=== PATIENT | female | born 1995 | race Caucasian/White ===

== ENCOUNTER 2016-07-28 11:25 | Outpatient (CLI) | payer OTHER ==
[~2016-07-28] VITALS: Ht 157.5 cm; Wt 65.3 kg
[~2016-07-28 11:25] MED LIST: BEN50 PO; CLIN-73 PO; IBUP-1542 PO; NITR-58 PO; PRED50TA PO
[2016-07-28 12:39] VITALS: Ht 157.5 cm; Wt 65.3 kg
[2016-07-28 12:40] VITALS: BP 108/58; PULSE 74; RESP 18
[2016-07-28 13:09] LABS: ADD SCAN DIFF NO
[2016-07-28 13:13] LABS: BASOPHILS % 0.3 % (0.0-2.0); EOSINOPHILS # 0.1 10^3/ul (0.0-0.5); EOSINOPHILS % 0.9 % (0.0-7.0); LYMPHOCYTES # 2.4 10^3/ul (0.8-2.9); LYMPHOCYTES % 20.7 % (15.0-51.0); MEAN CORPUSCULAR HEMOGLOBIN 29.6 pg (29.0-33.0); MEAN CORPUSCULAR HGB CONC 35.5 g/dl (32.0-37.0); MEAN CORPUSCULAR VOLUME 83.6 fl (82.0-101.0); MEAN PLATELET VOLUME 9.9 fl (7.4-10.4); MONOCYTE # 0.7 10^3/ul (0.3-0.9); MONOCYTES % 5.7 % (0.0-11.0); NEUTROPHIL # 8.4 10^3/ul (1.6-7.5); NEUTROPHILS % 71.8 % (39.0-77.0); PLATELET COUNT 320 10^3/UL (140-415); RED BLOOD COUNT 3.71 10^6/ul (4.20-5.40); RED CELL DISTRIBUTION WIDTH 13.5 % (11.5-14.5); WHITE BLOOD COUNT 11.7 10^3/ul (4.8-10.8)
[2016-07-28 13:17] LABS: ADD UMIC YES; URINE BILIRUBIN (Dip) NEGATIVE (NEGATIVE); URINE BLOOD (Dip) NEGATIVE (NEGATIVE); URINE COLOR LT. YELLOW (YELLOW); URINE GLUCOSE (Dip) NEGATIVE (NEGATIVE); URINE KETONES (Dip) 15 (NEGATIVE); URINE LEUKOCYTE ESTERASE (Dip) 2+ (NEGATIVE); URINE NITRITE (Dip) NEGATIVE (NEGATIVE); URINE TOTAL PROTEIN (Dip) NEGATIVE (NEGATIVE); URINE UROBILINOGEN (Dip) 0.2 E.U./dL (0.1-1.0)
[2016-07-28 13:44] LABS: BACTERIA,URINE FEW; SQUAMOUS EPITHELIAL CELL,UR MODERATE; URINE RBCS 0-2 /HPF ([, 0])
--- NOTE | 2016-07-28 14:07 | RADRPT ---
PROCEDURE: Limited obstetric ultrasound CLINICAL INDICATION: Pain , labor TECHNIQUE: Multiple transverse and longitudinal grayscale images of the pelvis were obtained darby sabdominally and transvaginally.. COMPARISON: None FINDINGS: The cervix has a length of 3.3 cm. There is a trace amount of fluid within the cervix. There is a single viable intrauterine gestation. Cardiac activity is present with 152 beats per min [place]. There is a vertex presentation. The placenta is anterior. There is no evidence for an abruption or placenta previa. There is a normal amount of amniotic fluid with a MVP = 4.6 cm. RPTAT: AA IMPRESSION: Cervix length measures 3.3 cm. Trace amount of fluid noted within the cervix. .David Caraballo MD, Date Time Electronically viewed and signed by .David Caraballo MD, MD on 07/28/2016 14:06 .S/
--- NOTE | 2016-07-28 14:15 | TRIAGE ---
OB Triage Datetime Report Generated by CPN: 07/28/2016 14:15 Datetime: 07/28/2016 14:05 Labor Evaluation Frequency: 0 Monitor Mode: External Quality: Mild Datetime: 07/28/2016 13:30 Labor Evaluation Frequency: 0 Monitor Mode: External Quality: Mild Heart Rate Monitor Mode: OFF MONITOR Datetime: 07/28/2016 13:13 Vaginal Exam Membrane Status: Intact Datetime: 07/28/2016 13:00 Labor Evaluation Frequency: 0 Monitor Mode: External Quality: Mild Datetime: 07/28/2016 12:32 Labor Evaluation Frequency: 0 Monitor Mode: External Duration (sec)2399: 0 Resting Tone [place]: Relaxed Comments: OFF MONITOR Datetime: 07/28/2016 12:30 Labor Evaluation Frequency: 0 Monitor Mode: External Quality: Mild Heart Rate Monitor Mode: OFF MONITOR Datetime: 07/28/2016 12:17 Stage of : OB Triage Maternal Assessment Level of Consciousness: Fully Conscious DTR's/Clonus: DTRs 2+; No Clonus Headache: Denies Blurred Vision: No Respiratory Effort: Unlabored Breath Sounds, Left: Clear and Equal Breath Sounds, Right: Clear and Equal Nausea/Vomiting: Denies RUQ Epigastric Pain: Denies Facial Edema: None Labor Evaluation Frequency: 0 Monitor Mode: External Duration (sec)2399: 0 Resting Tone [place]: Relaxed Comments: OFF MONITOR Vaginal Exam Membrane Status: Intact Datetime: 07/28/2016 11:52 Headache: Denies Blurred Vision: No RUQ Epigastric Pain: Denies Facial Edema: None Labor Evaluation Frequency: 0 Monitor Mode: External Duration (sec)2399: 0 Resting Tone [place]: Relaxed Comments: OFF MONITOR Vaginal Exam Membrane Status: Intact Datetime: 07/28/2016 11:43 Time of Arrival: 07/28/2016 11:40 EGA: 20.3 Arrived By: Ambulatory Arrived From: Home Movement: Present Contractions: Denies/Absent Patient Complaints: None Time Provider Notified: 07/28/2016 12:10 Provider Notified: ELOY Datetime: 07/28/2016 11:30 Labor Evaluation Frequency: 0 Monitor Mode: External
--- NOTE | 2016-07-28 17:58 | QN ---
Documentation Comment 21-year-old with IUP at 20 weeks and 3 days presented with complaint of low back pain and pain in the lower abdomen as well as urinary frequency. She denied any vaginal bleeding, leaking of fluid or decreased movement. She denies any dysuria. She reports the pain in the lower abdomen is intermittent and increased with activity and moving. Pain also worsened after urination not during the urination. She denies any hematuria. Denies any flank pain. She denies any fever or chills. Physical examination: General appearance, alert and oriented 4 and is not in acute distress Abdomen: Soft, gravid, fundal height at the level of umbilicus consistent with 20 weeks gestation. There is no uterine tenderness. There is no tenderness in suprapubic area. There is a slight exam tenderness in the both lower abdomen., No rebound tenderness or guarding or rigidity. Urine Results - 72 Hrs Test 07/28/16 12:13 Urine Color LT. YELLOW (YELLOW) Urine Clarity CLEAR (CLEAR) Urine pH 7.0 (5.0-9.0) Urine Specific [place] 1.015 (1.003-1.030) Urine Ketones 15 (NEGATIVE) Urine Nitrite NEGATIVE (NEGATIVE) Urine Bilirubin NEGATIVE (NEGATIVE) Urine Urobilinogen 0.2 E.U./dL (0.1-1.0) Urine Leukocyte Esterase 2+ (NEGATIVE) H Urine Microscopic RBC 0-2/HPF (0) Urine Microscopic WBC 2-5/HPF (0) Urine Squamous Epithelial Cells MODERATE Urine Bacteria FEW Urine Hemoglobin NEGATIVE (NEGATIVE) Urine Glucose NEGATIVE% (NEGATIVE) Urine Total Protein NEGATIVE (NEGATIVE) Laboratory Tests Test 07/28/16 12:13 07/28/16 12:53 Urine Color LT. YELLOW Urine Clarity CLEAR Urine pH 7.0 Urine Specific [place] 1.015 Urine Ketones 15 Urine Nitrite NEGATIVE Urine Bilirubin NEGATIVE Urine Urobilinogen 0.2 E.U./dL Urine Leukocyte Esterase 2+ Urine Microscopic RBC 0-2/HPF Urine Microscopic WBC 2-5/HPF Urine Squamous Epithelial Cells MODERATE Urine Bacteria FEW Urine Hemoglobin NEGATIVE Urine Glucose NEGATIVE% Urine Total Protein NEGATIVE White Blood Count 11.710^3/ul Red Blood Count 3.7110^6/ul Hemoglobin 11.0g/dl Hematocrit 31.0% Mean Corpuscular Volume 83.6fl Mean Corpuscular Hemoglobin 29.6pg Mean Corpuscular Hemoglobin Concent 35.5g/dl Red Cell Distribution Width 13.5% Platelet Count 80224^3/UL Mean Platelet Volume 9.9fl Neutrophils % 71.8% Lymphocytes % 20.7% Monocytes % 5.7% Eosinophils % 0.9% Basophils % 0.3% Nucleated Red Blood Cells % 0.0/100WBC Neutrophils # 8.410^3/ul Lymphocytes # 2.410^3/ul Monocytes # 0.710^3/ul Eosinophils # 0.110^3/ul Basophils # 0.010^3/ul Nucleated Red Blood Cells # 0.010^3/ul PROCEDURE: Limited obstetric ultrasound CLINICAL INDICATION: Pain , labor TECHNIQUE: Multiple transverse and longitudinal grayscale images of the pelvis were obtained transabdominally and transvaginally.. COMPARISON: None FINDINGS: The cervix has a length of 3.3 cm. There is a trace amount of fluid within the cervix. There is a single viable intrauterine gestation. Cardiac activity is present with 152 beats per minute. There is a vertex presentation. The placenta is anterior. There is no evidence for an abruption or placenta previa. There is a normal amount of amniotic fluid with a MVP = 4.6 cm. RPTAT: AA IMPRESSION: Cervix length measures 3.3 cm. Trace amount of fluid noted within the cervix. Assessment: IUP at 20 weeks Lower abdominal pain consistent with round ligament pain Cervix closed and long Plan: DC home Tylenol 650 p.o. every 6 hours as needed pain Follow-up with OB clinic in the next couple of days RT triage as needed any other symptoms or if the pain worsened and did not resolve NATALIA MURPHY MD Jul 28, 2016 17:57
== END 2016-07-28 14:26 | disposition home or self-care (01) ==
LOC: OBT 11:25 → L-D 11:28 → OBT 14:26
PROVIDERS: ATTEND Obstetrics & Gynecology
DX: O60.02 Preterm labor without delivery, second trimester (principal); Z3A.20 20 weeks gestation of pregnancy
CPT/HCPCS: 36415; 76815; 76817; 81001; 85025; Z7500; 81003; G0463

== ENCOUNTER 2016-10-02 09:42 | Emergency (ER) | payer OTHER ==
[~2016-10-02] VITALS: Ht 160 cm; Wt 70.0 kg
[2016-10-02 09:45] VITALS: Ht 160 cm; Wt 70.0 kg
[2016-10-02] MEDS ORDERED: ONDANSETRON 4 MG INJ IV STA (09:58)
[2016-10-02] MEDS ORDERED: SOD CHLORIDE 0.9% 500 ML IV STA (09:58)
[2016-10-02] MEDS ORDERED: ACETAMINOPHEN 325 MG TAB PO ONE (10:00)
[2016-10-02 10:15] LABS: ADD SCAN DIFF NO
[2016-10-02 10:19] LABS: BASOPHILS % 0.2 % (0.0-2.0); EOSINOPHILS # 0.2 10^3/ul (0.0-0.5); HEMATOCRIT 32.9 % (37.0-47.0); HEMOGLOBIN 11.5 g/dl (12.0-16.0); LYMPHOCYTES # 3.1 10^3/ul (0.8-2.9); LYMPHOCYTES % 18.1 % (15.0-51.0); MEAN CORPUSCULAR HEMOGLOBIN 29.4 pg (29.0-33.0); MEAN CORPUSCULAR VOLUME 84.1 fl (82.0-101.0); MONOCYTE # 1.2 10^3/ul (0.3-0.9); MONOCYTES % 7.2 % (0.0-11.0); NEUTROPHIL # 12.3 10^3/ul (1.6-7.5); NEUTROPHILS % 72.6 % (39.0-77.0); RED BLOOD COUNT 3.91 10^6/ul (4.20-5.40); RED CELL DISTRIBUTION WIDTH 12.7 % (11.5-14.5)
[2016-10-02 10:21] LABS: MEAN PLATELET VOLUME 11.9 fl (7.4-10.4)
[2016-10-02] MEDS ORDERED: FAMOTIDINE 20 MG TAB PO STA (10:27)
[2016-10-02] MEDS ORDERED: LIDOCAINE/MYLANTA 40 ML BTL PO STA (10:27)
[2016-10-02] MEDS ORDERED: BELLADONNA/PHENOBARBITAL TAB PO STA (10:27)
--- NOTE | 2016-10-02 10:34 | ERD ---
ER Documentation Chief Complaint Date/Time DATE: 10/02/16 TIME: 10:29 Chief Complaint HAD BACK PAIN AND STARTED HAVING CP IS 7 MONTHS AND HX OF ANXIETY HPI 21-year-old woman who is about 28 weeks by dates complains of sharp nonexertional nonradiating chest pain since last night. She states she has had this episode of chest pain twice already during this . She states she has a history of GERD/gastritis during this and does complain of belching since last night. She denies fevers or chills, no shortness of breath , no vomiting or diarrhea, no blood per rectum or melena. Patient denies pelvic or abdominal pain, no vaginal bleeding or discharge, no dysuria. ROS All systems reviewed and are negative except as per history of present illness. Medications Home Meds Active Scripts Acetaminophen* (Tylenol*) 325 Mg Tablet, 2 TAB PO TID Y for PAIN AND OR ELEVATED TEMP, #30 TAB Prov:LISSETH HOWE MD 10/02/16 Mag Hydrox/Al Hydrox/Simeth (Maalox Advanced Suspension) 355 Ml Oral.susp, 2 TSP PO TID for PAIN, #24 OZ Prov:LISSETH HOWE MD 10/02/16 Nitrofurantoin Monohyd Macrocr* (Macrobid*) 100 Mg Capsr, 100 MG PO BID for 5 Days, CAP Prov:ISIDORO STRICKLAND PA-C 04/12/16 Prednisone* (Prednisone*) 50 Mg Tablet, 50 MG PO DAILY, #5 TAB Prov:LONA HWANG NP 02/23/16 Diphenhydramine Hcl* (Benadryl*) 50 Mg Cap, 50 MG PO Q6H Y for ITCHING/RASH, # 30 CAP Prov:LONA HWANG NP 02/23/16 Ibuprofen* (Motrin*) 600 Mg Tab, 600 MG PO Q6H Y for PAIN AND OR ELEVATED TEMP, #30 TAB Prov:LONA HWANG NP 02/23/16 Clindamycin Hcl* (Clindamycin Hcl*) 300 Mg Capsule, 300 MG PO TID for 10 Days, CAP Prov:LONA HWANG NP 02/23/16 Reported Medications [None] No Conflict Check 02/19/10 Allergies Allergies: Coded Allergies: No Known Drug Allergies (Verified Allergy, Mild, 02/19/10) PMhx/Soc Anxiety, gastritis History of Surgery: No Anesthesia Reaction: No Hx Neurological Disorder: No Hx Respiratory Disorders: No Hx Cardiac Disorders: No Hx Psychiatric Problems: Yes (depression) Hx Miscellaneous Medical Probl: No Hx Alcohol Use: Yes (socially) Hx Substance Use: Yes (marijuana) Hx Tobacco Use: No FmHx Family History: No diabetes Physical Exam Vitals Vital Signs Date Time Temp Pulse Resp B/P Pulse Ox O2 Delivery O2 Flow Rate FiO2 10/02/16 11:50 74 16 102/64 99 10/02/16 09:45 98.6 87 18 113/59 100 Physical Exam GENERAL: Well-developed, well-nourished, well-hydrated, appears anxious HEENT: Moist mucous membranes, pink conjunctiva, no cervical spine tenderness or step-off deformities, no goiter, no jaundice or icterus, extraocular movements intact without pain. No submandibular induration, and no pharyngeal erythema NEURO: Alert and oriented 3, cranial nerves II through XII intact bilaterally, pupils equal round reactive to light, no focal deficits or facial asymmetry, sensation intact distally Strength 5/5 in upper and lower extremities bilaterally CARDIAC: Regular rate and rhythm, no murmurs rubs or gallops LUNGS: Clear bilaterally no wheezing crackles or stridor ABDOMEN: Gravid abdomen, soft nontender, no guarding, no rigidity, no rebound, no psoas sign no obturator sign. SKIN: Warm and dry to touch, no abrasions, contusions, or hematomas, no lacerations, no ecchymosis, no target lesions, and without ulcers EXTREMITIES: No clubbing cyanosis or edema, calves are bilaterally symmetrical, no Homans sign, no popliteal cord sign. Distal pulses equal and bilateral PSYCH: Anxious Result Diagram: 10/02/16 1005 10/02/16 1005 Results 24 hrs Laboratory Tests Test 10/02/16 09:49 10/02/16 10:05 Urine Color LT. YELLOW Urine Clarity SLIGHTLY CLOUDY Urine pH 6.0 Urine Specific [place] 1.020 Urine Ketones NEGATIVE Urine Nitrite NEGATIVE Urine Bilirubin NEGATIVE Urine Urobilinogen 0.2 E.U./dL Urine Leukocyte Esterase 2+ Urine Microscopic RBC 5-10/HPF Urine Microscopic WBC 10-25/HPF Urine Epithelial Cells MANY Urine Bacteria MANY Urine Hemoglobin NEGATIVE Urine Glucose NEGATIVE% Urine Total Protein NEGATIVE White Blood Count 17.010^3/ul Red Blood Count 3.9110^6/ul Hemoglobin 11.5g/dl Hematocrit 32.9% Mean Corpuscular Volume 84.1fl Mean Corpuscular Hemoglobin 29.4pg Mean Corpuscular Hemoglobin Concent 35.0g/dl Red Cell Distribution Width 12.7% Platelet Count 80409^3/UL Mean Platelet Volume 11.9fl Neutrophils % 72.6% Lymphocytes % 18.1% Monocytes % 7.2% Eosinophils % 1.0% Basophils % 0.2% Nucleated Red Blood Cells % 0.0/100WBC Neutrophils # 12.310^3/ul Lymphocytes # 3.110^3/ul Monocytes # 1.210^3/ul Eosinophils # 0.210^3/ul Basophils # 0.010^3/ul Nucleated Red Blood Cells # 0.010^3/ul Sodium Level 138mmol/L Potassium Level 3.9mmol/L Chloride Level 109mmol/L Carbon Dioxide Level 24mmol/L Anion Gap 9 Blood Urea Nitrogen 4mg/dl Creatinine 0.43mg/dl Glucose Level 89mg/dl Calcium Level 8.7mg/dl Total Bilirubin 0.2mg/dl Direct Bilirubin 0.00mg/dl Indirect Bilirubin 0.2mg/dl Aspartate Amino Transf (AST/SGOT) 44IU/L Alanine Aminotransferase (ALT/SGPT) 24IU/L Alkaline Phosphatase 130IU/L Troponin I 0.021ng/ml Total Protein 7.3g/dl Albumin 4.3g/dl Globulin 3.00g/dl Albumin/Globulin Ratio 1.43 Lipase 34U/L Current Medications Medications (Trade) Dose Ordered Sig/Fadia Route PRN Reason Start Time Stop Time Status Last Admin Dose Admin Sodium Chloride (NS) 500 ml @ 500 mls/hr Q1H STAT IV 10/02/16 09:58 10/02/16 10:57 DC 10/02/16 10:42 Ondansetron HCl (Zofran Inj) 4 mg ONCE STAT IV 10/02/16 09:58 10/02/16 10:01 DC 10/02/16 10:36 Acetaminophen (Tylenol Tab) 650 mg ONCE ONCE PO 10/02/16 10:00 10/02/16 10:01 DC 10/02/16 10:36 Famotidine (Pepcid) 40 mg ONCE STAT PO 10/02/16 10:27 10/02/16 10:28 DC 10/02/16 10:39 Miscellaneous Medication (Gi Cocktail (2)) 40 ml ONCE STAT PO 10/02/16 10:27 10/02/16 10:28 DC 10/02/16 10:40 [place]/ Phenobarbital () 2 tab ONCE STAT PO 10/02/16 10:27 10/02/16 10:28 DC 10/02/16 10:40 Procedures/MDM IV line was established patient was placed on cardiac cath tech rhythm strip revealed a sinus rhythm at about 80 bpm with upright P and T waves. Patient was afebrile. EKG performed, read by me: 88 bpm, normal sinus rhythm, normal axis, no acute ST segment changes, narrow QRS complex, with good R-wave progression in precordial leads. I administered 500 cc normal saline intravenously, acetaminophen 650 mg p.o., Zofran 4 mg IV, GI cocktail 30 cc p.o., and famotidine 40 mg p.o. with good effect. CBC and electrolytes were normal, liver function tests were normal, troponin was negative. Differential diagnoses considered, included but not limited to acute coronary syndrome, pulmonary embolism, aortic dissection, abdominal aortic aneurysm, sepsis, stroke, ectopic , placenta previa, eclampsia, pneumonia, appendicitis, cholecystitis, bowel obstruction, pyelonephritis, nephrolithiasis , cystitis, as well as metabolic, hematologic, and electrolyte abnormalities. As well as abscess, cellulitis, fractures, and dislocations. Patient feels much better at this time, and vital signs are normal, symptoms have improved. I did give strict instructions to return to the ED if symptoms continue or worsen, patient will otherwise follow-up with primary care physician. Patient understood instructions and agreed to plan. Disclaimer: Inadvertent spelling or grammatical errors are likely due to EHR/ dictation software use and do not reflect on the overall quality of patient care. Departure Diagnosis: Primary Impression: Chest pain Chest pain type: unspecified Qualified Code: R07.9 - Chest pain, unspecified type Additional Impression: Second trimester Condition: Good LISSETH HOWE MD Oct 02, 2016 10:34
[2016-10-02] MEDS ORDERED: MAG355OR14 PO (10:35)
[2016-10-02] MEDS ORDERED: ACET325T33 PO (10:35)
[2016-10-02 10:41] LABS: ALBUMIN 4.3 g/dl (3.3-4.9); ALBUMIN/GLOBULIN RATIO 1.43; BILIRUBIN,INDIRECT 0.2 mg/dl (0-1.1); BILIRUBIN,TOTAL 0.2 mg/dl (0.2-1.3); CALCIUM 8.7 mg/dl (8.4-10.2); CREATININE 0.43 mg/dl (0.44-1.00); POTASSIUM 3.9 mmol/L (3.5-5.1); TOTAL PROTEIN 7.3 g/dl (6.1-8.1)
[2016-10-02 10:48] LABS: PLATELET COUNT 373 10^3/UL (140-415)
[2016-10-02 10:52] LABS: TROPONIN-I 0.021 ng/ml (0.00-0.12)
[2016-10-02 11:34] LABS: ADD UMIC YES; URINE BILIRUBIN (Dip) NEGATIVE (NEGATIVE); URINE BLOOD (Dip) NEGATIVE (NEGATIVE); URINE COLOR LT. YELLOW (YELLOW); URINE GLUCOSE (Dip) NEGATIVE (NEGATIVE); URINE KETONES (Dip) NEGATIVE (NEGATIVE); URINE LEUKOCYTE ESTERASE (Dip) 2+ (NEGATIVE); URINE NITRITE (Dip) NEGATIVE (NEGATIVE); URINE TOTAL PROTEIN (Dip) NEGATIVE (NEGATIVE); URINE UROBILINOGEN (Dip) 0.2 E.U./dL (0.1-1.0)
[2016-10-02 11:50] VITALS: BP 102/64; PULSE 74; RESP 16
[2016-10-02 11:57] LABS: BACTERIA,URINE MANY
== END 2016-10-02 11:51 | disposition home or self-care (01) ==
LOC: E/R 09:42
DX: O99.89 Other specified diseases and conditions complicating pregnancy, childbirth and the puerperium (principal); R07.9 Chest pain, unspecified; Z3A.28 28 weeks gestation of pregnancy
CPT/HCPCS: 36415; 80053; 81001; 83690; 84484; 85025; 93005; 96374; J2405; J7040; Z7502; Z7610

== ENCOUNTER 2016-12-09 08:44 | Outpatient (CLI) | payer OTHER ==
[~2016-12-09] VITALS: Ht 157.5 cm; Wt 73.2 kg
[~2016-12-09 08:44] MED LIST changes: +ACET325T33 PO; +MAG355OR14 PO
[2016-12-09 08:59] VITALS: BP 113/52; PULSE 70; Ht 157.5 cm; Wt 73.2 kg
[2016-12-09] MEDS ORDERED: PRENAT PO (09:01)
--- NOTE | 2016-12-09 10:49 | RADRPT ---
PROCEDURE: US OB. CLINICAL INDICATION: Size and dates , labor pain TECHNIQUE: Multiple sonographic images of the pelvis and gravid uterus were obtained. The images were reviewed on a PACS workstation. COMPARISON: 07/28/2016 FINDINGS: There is a single viable intrauterine gestation. Cardiac activity is present with 152 beats per min [place]. There is a vertex presentation. The placenta is anterior. There is no evidence for an abruption or placenta previa. There is a normal amount of amniotic fluid with an MER = 8.7 cm. Measurements were made in order to determine age. The results are as follows: BPD =9.4 cm HC =34.1 cm AC =35.2 cm FL =7.2 cm Estimated gestational age of approximately 38 weeks and 3 days based on ultrasound measurements. Clinical age: 39 weeks and 4 days. The estimated date of delivery is 12/20/2016, based on ultrasound measurements. The EFW = 3523 g, 48.3%, based on LMP age. RPTAT: AA IMPRESSION: Single viable intrauterine gestation of approximately 38 weeks and 3 days based on ultrasound measu rements. .David Caraballo MD, Date Time Electronically viewed and signed by .David Caraballo MD, on 12/09/2016 10:49 .S/
--- NOTE | 2016-12-09 10:53 | RADRPT ---
PROCEDURE: US OB biophysical profile. CLINICAL INDICATION: decreased movements TECHNIQUE: Multiple sonographic images of the pelvis were obtained. The images were reviewed on a PACS workstation. COMPARISON: 07/28/2016 FINDINGS: There is a single viable intrauterine gestation. Cardiac activity is present with 161 beats per min [place]. There is a vertex presentation. The placenta is anterior. There is no evidence of placental abruption. There is a normal amount of amniotic fluid with an MER = 8.7 cm. Biophysical profile: movement 2/2 tone 2/2. breathing 2/2 MER 2/2 Total 12/07 RPTAT: AA . IMPRESSION: Normal biophysical profile. . .David Caraballo MD, MD Date Time Electronically viewed and signed by .David Caraballo MD, MD on 12/09/2016 10:53 .S/
--- NOTE | 2016-12-09 11:54 | PN ---
Triage Information Date/Time Reason for visit: Uterine contractions Weeks of Gestation 39 weeks 4/ 7 /Para 1 para 0 Diabetes: none Hypertention: none Objective Vital Signs Date Time Temp Pulse Resp B/P Pulse Ox O2 Delivery O2 Flow Rate FiO2 12/09/16 08:59 98.4 70 113/52 Heart Rate: 130's Contractions: 6-10 Minutes Apart Exam Examination by L&D nurse cervix closed to fingertip 50% vertex at -2 stay patient sent home with recommendation to return to hospital contraction or stronger more bedrest and hydration recommended advised to follow with the clinic or return to the hospital as needed Disposition: Discharge JOANNE LYONS MD Dec 09, 2016 11:54
== END 2016-12-09 11:25 | disposition home or self-care (01) ==
LOC: OBT 08:44 → L-D 08:46 → OBT 11:25
PROVIDERS: ATTEND Obstetrics & Gynecology
DX: O62.9 Abnormality of forces of labor, unspecified (principal); Z3A.39 39 weeks gestation of pregnancy
CPT/HCPCS: 76815; 76818; Z7500; G0463

== ENCOUNTER 2016-12-12 11:39 | Inpatient (IN) | payer OTHER ==
[~2016-12-12] VITALS: Ht 157.5 cm; Wt 72.7 kg
[~2016-12-12 11:39] MED LIST changes: -ACET325T33 PO; -BEN50 PO; -CLIN-73 PO; -IBUP-1542 PO; -MAG355OR14 PO; -NITR-58 PO; -PRED50TA PO; +PRENAT PO
--- NOTE | 2016-12-23 19:12 | RADRPT ---
PROCEDURE: OB ultrasound CLINICAL INDICATION: Post dates TECHNIQUE: Multiple transverse and longitudinal OB images of the pelvis were obtained. The images were reviewed on a high-resolution PACS workstation. COMPARISON: 12/09/2016 FINDINGS: A single live intrauterine is seen. The presentation is vertex. The placenta is grade 2-3 and anterior in location. No evidence of placenta abruption or previa is seen. The heart rate is 154 beats per minute. The amniotic fluid index is 8.2 cm. movement 2 tone 2 breathing 2 Amniotic fluid 2 IMPRESSION: Biophysical profile of 12/07. RPTAT: HPNM Physician Anne Date Time Electronically viewed and signed by Physician Anne on 12/23/2016 19:11 /
--- NOTE | 2016-12-23 19:22 | RADRPT ---
PROCEDURE: US OB Limited for Estimated Weight. CLINICAL INDICATION: 21 years of age, female. Post dates TECHNIQUE: Multiple sonographic images of the pelvis were obtained. Transabdominal imaging only w as performed. The images were reviewed on a PACS workstation. Image quality: Satisfactory. COMPARISON: No prior studies are available for comparison. FINDINGS: [place] : Number of fetuses: 1 GENERAL EVALUATION: Cardiac activity: Present. FHR 153 bpm Presentation: Cephalic Placenta: Placenta site: Anterior. No evidence of placental previa. Placental grade 3 Cervix (transabdominal): Not evaluated MER: Not evaluated DATING: Clinical JUN: December 12, 2016 EGA based on JUN: 41 weeks 4 days BIOMETRY: BPD = 9.4 cm , 38 weeks 2 days HC = 33.8 cm , 38 weeks 5 days AC = 34.1 cm , 38 weeks 0 days FL = 7.5 cm , 38 weeks 4 days Composite sonographic age: 38 weeks 3 days plus or minus 3 weeks Estimated due date by ultrasound measurements: January 03, 2017 EFW 3442 grams, 40th percentile for gestational age. ANATOMY: Not evaluated. IMPRESSION: 1. Single living fetus in cephalic presentation. 2. Composite sonographic age of 38 weeks 3 days lags behind the clinical gestation age of 41 weeks 4 days by 3 weeks. 3. Estimated weight is 3442 grams that is at the 40th percentile for gestational age. 4. Anterior placenta grade 3. RPTAT: HCTS Physician Catrachita Date Time Electronically viewed and signed by Physician Catrachita on 12/23/2016 20:21 CS/
[2016-12-23 19:27] VITALS: BP 118/64; PULSE 71; RESP 18
[2016-12-23] MEDS ORDERED: METHYLERGONOVINE 0.2 MG INJ IM PRN (20:00)
[2016-12-23] MEDS ORDERED: IBUPROFEN 600 MG TAB PO PRN (20:00)
[2016-12-23] MEDS ORDERED: OXYTOCIN 30 UNITS/LR 500 ML IV SCH ×3 (20:00→22:00)
[2016-12-23] MEDS ORDERED: BUTORPHANOL 2 MG INJ IV PRN (20:00)
[2016-12-23] MEDS ORDERED: OXYTOCIN 30 UNITS/LR 500 ML IV PRN (20:00)
[2016-12-23] MEDS ORDERED: LIDOCAINE 1% (MPF) 30 ML INJ INJ PRN (20:00)
[2016-12-23] MEDS ORDERED: CARBOPROST 250 MCG INJ IM PRN (20:00)
[2016-12-23] MEDS ORDERED: LACTATED RINGER'S 1,000 ML IV PRN (20:00)
[2016-12-23] MEDS ORDERED: MISOPROSTOL 200 MCG TAB PR PRN (20:00)
[2016-12-23 20:48] LABS: BASOPHILS % 0.2 % (0.0-2.0); EOSINOPHILS # 0.1 10^3/ul (0.0-0.5); EOSINOPHILS % 0.7 % (0.0-7.0); HEMATOCRIT 30.5 % (37.0-47.0); HEMOGLOBIN 10.4 g/dl (12.0-16.0); LYMPHOCYTES # 3.2 10^3/ul (0.8-2.9); LYMPHOCYTES % 25.2 % (15.0-51.0); MEAN CORPUSCULAR HEMOGLOBIN 27.4 pg (29.0-33.0); MEAN CORPUSCULAR HGB CONC 34.1 g/dl (32.0-37.0); MEAN CORPUSCULAR VOLUME 80.3 fl (82.0-101.0); MEAN PLATELET VOLUME 10.6 fl (7.4-10.4); MONOCYTES % 7.9 % (0.0-11.0); NEUTROPHILS % 65.1 % (39.0-77.0); PLATELET COUNT 327 10^3/UL (140-415); RED CELL DISTRIBUTION WIDTH 12.7 % (11.5-14.5); WHITE BLOOD COUNT 12.7 10^3/ul (4.8-10.8)
[2016-12-23 21:05] LABS: INR 0.91; PROTIME 12.2 Sec (12.2-14.2)
[2016-12-23 21:06] LABS: PARTIAL THROMBOPLASTIN TIME 28.8 Sec (25.0-35.0)
[2016-12-23] MEDS: LACTATED RINGER'S 1,000 ML IV SCH ×2 (21:19→23:07)
[2016-12-23 21:31] VITALS: Ht 157.5 cm; Wt 72.7 kg
[2016-12-24] MEDS: LACTATED RINGER'S 1,000 ML IV SCH ×3 (06:52→21:46)
[2016-12-24] MEDS ORDERED: DEXTROSE 5%-LR 1,000 ML IV SCH (10:30)
[2016-12-24 11:04] LABS: BARBITURATES Negative (NEGATIVE); BENZODIAZEPINES Negative (NEGATIVE); CANNABINOIDS Negative (NEGATIVE); COCAINE Negative (NEGATIVE); OPIATES Negative (NEGATIVE)
--- NOTE | 2016-12-24 15:28 | HP ---
Date/Time of Note Date/Time of Note DATE: 12/24/16 TIME: 15:12 OB - History Hx of Present Free Text/Dictation 21 years old female EDC December 12, 2016 admitted to [facility] at 41 weeks and 5 days for induction of labor. Pelvic examination on admission cervix barely 1 cm 70% effaced vertex at -2 station she is being prepared for induction of labor with Pitocin IV infusion, This patient has been under the care of [facility] her is not complicated with gestational diabetes -induced hypertension or any other serious medical or surgical condition . BAND TUMBLER history Menarche at age 12 History of regular periods Allergy Denies allergy to any known medication Social habit positive marijuana patient claims had the stopped using since when she find out she is Review of system within normal Physical exam 5 feet 2 160 pound total weight gain during this 25 pounds Temperature 97 pulse 79, respiration 20, blood pressure 114/60 Head ears nose and throat negative Lungs clear to P&A Heart normal sinus rhythm Abdomen fundal height 38 cm from symphysis pubis heart rate category 1 Pelvic examination Cervix 2 cm 70% effaced, vertex at -2 station Extremities no edema no varicosities Impression Intrauterine at 41week &5days Admitted for induction of labor Chief Complaint: 41 weeks 5 days admitted for induction of labor Estimated Due Date: Dec 12, 2016 : 1 Para: 0 Care: Good Care Ultrasounds: Normal mid trimester US Obstetrical Complications: None Medical Complications: None Past Family/Social History * Past Medical, Surgical, Family and Obstetric Histories reviewed from chart. Rubella: immune RPR/VDRL: Negative GBS Status: Negative HBsAG: Negative OB Admission Exam Vital Signs Vital Signs Vital Signs Date Time Temp Pulse Resp B/P Pulse Ox O2 Delivery O2 Flow Rate FiO2 12/23/16 19:27 97.8 71 18 118/64 Room Air Physical Exam HEENT: WNL Heart: Rhythm Normal Lungs: Clear, Equal Abdomen: WNL Extremities: Normal Reflexes: Normal Cervical Dilatation: 1cm Effacement: 75% Station: -2 Membranes: Intact Heart Rate: 130's Accelerations: Accelerations Present Decelerations: No Decelerations Varibility: Moderate Contractions on Admission: 6-10 Minutes Apart Intensity: Moderate Last 72 hours Lab Results CBC & BMP 12/23/16 20:39 OB Assessment/Plan Reason for admission: induction of labor Plan: Other (Plan of induction of labor with Pitocin IV infusion discussed with the patient all her questions answered) JOANNE LYONS MD Dec 24, 2016 15:22
[2016-12-24] MEDS ORDERED: FENTAnyl 2MCG/ML-ROPIV 0.2% 100 ML ONE (16:14)
[2016-12-24] MEDS ORDERED: NALOXONE (0.4 MG/ML) INJ IV PRN (16:30)
[2016-12-24] MEDS ORDERED: FENTAnyl 2MCG/ML-ROPIV 0.2% 100 ML BAG EPI SCH (16:30)
[2016-12-24] MEDS ORDERED: DIPHENHYDRAMINE 50 MG INJ IV PRN (16:30)
[2016-12-24] MEDS ORDERED: ONDANSETRON 4 MG INJ IV PRN (16:30)
[2016-12-25] MEDS ORDERED: ACETAMINOPHEN 500 MG TAB PO STA (03:15)
[2016-12-25] MEDS ORDERED: ACETAMINOPHEN 500 MG TAB ONE (03:21)
[2016-12-25] MEDS: LACTATED RINGER'S 1,000 ML IV SCH ×2 (04:52→17:38)
[2016-12-25] MEDS ORDERED: SODIUM CHLORIDE IVPB ONE (05:00)
[2016-12-25] MEDS ORDERED: GENTAMICIN 80 MG/NS (PMX) 50 ML IVPB SCH ×2 (05:00→11:00)
[2016-12-25] MEDS ORDERED: AMPICILLIN IVPB ONE (05:00)
[2016-12-25] MEDS ORDERED: GENTAMICIN 80 MG/NS (PMX) 50 ML ONE (05:10)
[2016-12-25] MEDS ORDERED: AMPICILLIN 2 GM/NS (PMX) 100 ML ONE (05:16)
[2016-12-25] MEDS ORDERED: SODIUM CHLORIDE IVPB SCH (09:00)
[2016-12-25] MEDS ORDERED: AMPICILLIN IVPB SCH (09:00)
[2016-12-25] MEDS ORDERED: LIDOCAINE 2%/EPI 30 ML INJ ONE (09:36)
[2016-12-25] MEDS ORDERED: nitroGLYCerin 50 MG INJ ONE (09:44)
[2016-12-25] MEDS ORDERED: PHENYLephrine (100 MCG/ML) 5ML SYG ONE (09:49)
[2016-12-25] MEDS ORDERED: FENTAnyl 50 MCG/ML VIAL ONE (09:56)
--- NOTE | 2016-12-25 10:24 | LDN ---
Date/Time of Note Date/Time of Note DATE: 12/25/16 TIME: 10:13 Delivery Summary Normal spontaneous vaginal delivery of a baby boy from OA position shoulders delivered without difficulty rest of the baby's body followed cord clamped after stopped pulsation nasal oropharyngeal suction was performed the team, Placenta did not expel spontaneously after 30 minutes of waiting required manual removal of the placenta under anesthesia after removing the placenta uterine cavity explored no retained placenta.or membranes, patient sustained first degree perineal laceration repaired with 3-0 Vicryl, estimated blood loss 350-400 mL Weeks of Gestation 41 weeks and 5 days Placenta Delivered: Manually, Intact & Complete Meconium: Light Episiotomy: No Perineal laceration: 1 Laceration repair: First degree perineal laceration repaired with 3-0 Vicryl Anesthesia type: Epidural Estimated blood loss: 400 Sponge & Needle done & correct: Yes All needle counts correct: Yes Any foreign bodies felt in the: No Problems: Infant Delivery Information Sex Sex: male Apgars 1 Minute: 8 5 Minute: 9 Suctioning Nose & mouth suctioned at lucy: Yes Delee suction performed: No Umbilical Cord Umbilical cord with: 3 Vessels Cord presentations: nuchal cord Nuchal cord present X: 1 Cord Blood was obtained: Yes JOANNE LYONS MD Dec 25, 2016 10:24
[2016-12-25] MEDS ORDERED: CEFAZOLIN 2 GM/50 ML (PMX) IVPB SCH (10:30)
[2016-12-25] MEDS ORDERED: GENTAMICIN 80 MG/NS (PMX) 50 ML IVPB ONE (10:30)
[2016-12-25] MEDS ORDERED: OXYTOCIN 30 UNITS/LR 500 ML IV SCH (11:31)
[2016-12-25] MEDS ORDERED: LACTATED RINGER'S 1,000 ML IV* SCH (11:31)
[2016-12-25] MEDS ORDERED: WITCH HAZEL/GLYCERIN PAD PR PRN ×2 (12:00→13:00)
[2016-12-25] MEDS ORDERED: OXYCODONE/ASPIRIN (4.88/325) TAB PO PRN ×4 (12:00→13:00)
[2016-12-25] MEDS ORDERED: ONDANSETRON 4 MG INJ IV PRN ×2 (12:00→13:00)
[2016-12-25] MEDS ORDERED: BENZOCAINE 20% 56 ML SPRAY TOP PRN ×2 (12:00→13:00)
[2016-12-25] MEDS ORDERED: LANOLIN 7 GM TUBE TOP PRN ×2 (12:00→13:00)
[2016-12-25] MEDS ORDERED: METHYLERGONOVINE 0.2 MG INJ IM PRN (12:00)
[2016-12-25] MEDS ORDERED: OXYTOCIN 30 UNITS/LR 500 ML IV PRN (12:00)
[2016-12-25] MEDS ORDERED: ACETAMINOPHEN 325 MG TAB PO PRN ×2 (12:00→13:00)
[2016-12-25] MEDS ORDERED: HYDROCODONE/APAP (5/325) TAB PO PRN ×4 (12:00→13:00)
[2016-12-25] MEDS ORDERED: IBUPROFEN 600 MG TAB PO SCH (12:00)
[2016-12-25] MEDS ORDERED: MISOPROSTOL 200 MCG TAB PR PRN (12:00)
[2016-12-25] MEDS ORDERED: CARBOPROST 250 MCG INJ IM PRN (12:00)
[2016-12-25] MEDS ORDERED: DIBUCAINE 1% 30 GM OINT PR PRN ×2 (12:00→13:00)
[2016-12-25 12:30] VITALS: BP 123/75; PULSE 88; RESP 18
[2016-12-25] MEDS: OXYTOCIN 30 UNITS/LR 500 ML IV SCH ×2 (12:55→16:55)
[2016-12-25] MEDS: IBUPROFEN 600 MG TAB PO SCH ×3 (13:00→23:50)
[2016-12-25] MEDS: CEFAZOLIN 2 GM/50 ML (PMX) 50 ML IVPB SCH ×3 (14:00→22:27)
[2016-12-25 16:00] VITALS: BP 103/52; PULSE 94; RESP 18
[2016-12-25 20:20] VITALS: BP_SYST 112; PULSE 136; RESP 18
[2016-12-25] MEDS ORDERED: SENNA/DOCUSATE NA (8.6MG/50MG) TAB PO SCH (21:00)
[2016-12-25] MEDS: SENNA/DOCUSATE NA (8.6MG/50MG) TAB PO SCH (21:04)
[2016-12-26] MEDS: LACTATED RINGER'S 1,000 ML IV SCH
[2016-12-26] MEDS: IBUPROFEN 600 MG TAB PO SCH ×4 (06:31→23:50)
[2016-12-26 07:30] VITALS: BP 109/50; PULSE 83; RESP 19
[2016-12-26 08:30] LABS: ABNORMAL IP MESSAGE 1; BASOPHIL # 0.1 10^3/ul (0.0-0.1); BASOPHILS % 0.2 % (0.0-2.0); EOSINOPHILS # 0.1 10^3/ul (0.0-0.5); EOSINOPHILS % 0.6 % (0.0-7.0); HEMATOCRIT 22.1 % (37.0-47.0); HEMOGLOBIN 7.4 g/dl (12.0-16.0); LYMPHOCYTES # 3.8 10^3/ul (0.8-2.9); LYMPHOCYTES % 17.2 % (15.0-51.0); MEAN CORPUSCULAR HGB CONC 33.5 g/dl (32.0-37.0); MEAN CORPUSCULAR VOLUME 80.7 fl (82.0-101.0); MEAN PLATELET VOLUME 10.9 fl (7.4-10.4); MONOCYTE # 1.7 10^3/ul (0.3-0.9); MONOCYTES % 7.8 % (0.0-11.0); NEUTROPHILS % 73.3 % (39.0-77.0); PLATELET COUNT 277 10^3/UL (140-415); RED BLOOD COUNT 2.74 10^6/ul (4.20-5.40); RED CELL DISTRIBUTION WIDTH 13.3 % (11.5-14.5); WHITE BLOOD COUNT 22.3 10^3/ul (4.8-10.8)
[2016-12-26 08:38] LABS: POSITIVE DIFF @See below
[2016-12-26] MEDS: SENNA/DOCUSATE NA (8.6MG/50MG) TAB PO SCH ×2 (09:49→21:45)
--- NOTE | 2016-12-26 11:38 | CONS ---
Date/Time of Note Date/Time of Note DATE: 12/26/16 TIME: 11:37 Consultation Date/Type/Reason Admit Date/Time Dec 23, 2016 at 18:03 Initial Consult Date 12/26/16 Type of Consultation: Anesthesiology Reason for Consultation Follow up 24 HR Interval Summary Free Text/Dictation Pt seen and examined is POD#1 s/p removal of retained placenta in the OR. Pt received epidural duramorph for post-op pain control. She states she is doing well and her pain is adequately controlled at this time. No N/V/D/C/BONE. No numbness in her extremities. Will continue to follow. Constitutional: improved, no complaints Exam/Review of Systems Vital Signs Vitals Vital Signs Date Time Temp Pulse Resp B/P Pulse Ox O2 Delivery O2 Flow Rate FiO2 12/26/16 07:30 97.8 83 19 109/50 Room Air Intake and Output 12/25/16 12/25/16 12/26/16 15:00 23:00 07:00 Intake Total 570 ml 1050 ml Output Total 150 ml 800 ml Balance 420 ml 250 ml Results Result Diagram: 12/26/16 0715 Results 24 hrs Laboratory Tests Test 12/26/16 07:15 White Blood Count 22.3 #H Red Blood Count 2.74 #L Hemoglobin 7.4 #L Hematocrit 22.1 #L Mean Corpuscular Volume 80.7 L Mean Corpuscular Hemoglobin 27.0 L Mean Corpuscular Hemoglobin Concent 33.5 Red Cell Distribution Width 13.3 Platelet Count 277 Mean Platelet Volume 10.9 H Neutrophils % 73.3 Lymphocytes % 17.2 Monocytes % 7.8 Eosinophils % 0.6 Basophils % 0.2 Nucleated Red Blood Cells % 0.0 Neutrophils # (Manual) 16.3 H Lymphocytes # 3.8 H Monocytes # 1.7 H Eosinophils # 0.1 Basophils # 0.1 Nucleated Red Blood Cells # 0.0 Medications Medications Current Medications Ibuprofen (Motrin) 600 mg Q6 PO Last administered on 12/26/16t 06:31; Admin Dose 600 MG; Start 12/25/16 at 13:00 Acetaminophen (Tylenol Tab) 650 mg Q4H PRN PO PAIN LEVEL 1-5; Start 12/25/16 at 13:00 Acetaminophen/ Hydrocodone Bitart ([place] (5/325)) 1 tab Q4H PRN PO PAIN LEVEL 1 -5; Start 12/25/16 at 13:00 Acetaminophen/ Hydrocodone Bitart ([place] (5/325)) 2 tab Q4H PRN PO PAIN LEVEL 6 -10; Start 12/25/16 at 13:00 Oxycodone/Aspirin (Percodan) 1 tab Q3H PRN PO PAIN LEVEL 1-5; Start 12/25/16 at 13:00 Oxycodone/Aspirin (Percodan) 2 tab Q3H PRN PO PAIN LEVEL 6-10; Start 12/25/16 at 13:00 Ondansetron HCl (Zofran Inj) 4 mg Q6H PRN IV NAUSEA AND/OR VOMITING; Start at 13:00 Senna/Docusate Sodium (Senokot-S) 1 tab BID PO Last administered on 12/26/16t 09:49; Admin Dose 1 TAB; Start 12/25/16 at 21:00 Measles/Mumps/ Rubella Vaccine Live (Mmr Ii Vaccine) 0.5 ml ONCE ONCE SC* ; Start 12/27/16 at 09:00; Stop 12/27/16 at 09:01 FIDEL FLORENTINO Dec 26, 2016 11:38
[2016-12-26 16:14] VITALS: BP 101/51; PULSE 78; RESP 18
--- NOTE | 2016-12-26 17:22 | QN ---
Documentation Comment ppd1 pt doing well vss exam wnl a/p ppd1 continue care KB CRYSTAL MD Dec 26, 2016 17:21
[2016-12-26 20:45] VITALS: BP 108/56; PULSE 80; RESP 17
[2016-12-27 04:00] VITALS: BP 106/58; PULSE 67; RESP 17
[2016-12-27] MEDS: IBUPROFEN 600 MG TAB PO SCH ×3 (05:33→17:48)
[2016-12-27 08:00] VITALS: BP 114/59; PULSE 64; RESP 18
[2016-12-27] MEDS ORDERED: MEASLES,MUMPS,RUBELLA VACCINE INJ SC* ONE ×2 (09:00)
[2016-12-27] MEDS: SENNA/DOCUSATE NA (8.6MG/50MG) TAB PO SCH (09:36)
--- NOTE | 2016-12-27 12:24 | DS ---
Date/Time of Note Date/Time of Note DATE: 12/27/16 TIME: 12:24 Obstetrical Discharge Record Final Diagnosis Final Diagnosis: Term delivered Vaginal Delivery Obstetrical Delivery: Spontaneous Condition on Discharge Physical Assessment Voiding: Yes Bowel Movement: Yes Breast: Soft, non-tender Fundus: Firm Calf Tenderness: Yes Patient Condition: Stable KB CRYSTAL MD Dec 27, 2016 12:24
[2016-12-27 16:00] VITALS: BP 118/68; PULSE 73; RESP 18
== END 2016-12-27 19:00 | disposition home or self-care (01) | DRG 767 ==
LOC: EDSTATUS 18:00 → L-D 12-23 18:03 → PP1 12-25 12:27
PROVIDERS: ADMIT Obstetrics & Gynecology; ATTEND Obstetrics & Gynecology
PROC: 3E033VJ Introduction of Other Hormone into Peripheral Vein, Percutaneous Approach (ICD-10-PCS; 2016-12-23)
PROC: 10E0XZZ Delivery of Products of Conception, External Approach (ICD-10-PCS; principal; 2016-12-25)
PROC: 10D17ZZ Extraction of Products of Conception, Retained, Via Natural or Artificial Opening (ICD-10-PCS; 2016-12-25)
DX: O48.0 Post-term pregnancy (principal); O70.0 First degree perineal laceration during delivery; O73.0 Retained placenta without hemorrhage; Z37.0 Single live birth; Z3A.41 41 weeks gestation of pregnancy
CPT/HCPCS: 59414; 62319; 76815; 76818; 80307; 85025; 85610; 85730; 86592; 86703; 86900; 86901; 87340; 99464; J0290; J0595; J0690; J1580; J2370; J2590; J3010; J7120; J7121

== ENCOUNTER 2017-01-15 15:27 | Emergency (ER) | payer OTHER ==
[~2017-01-15] VITALS: Ht 157.5 cm; Wt 63.5 kg
[2017-01-15 15:34] VITALS: Ht 157.5 cm; Wt 63.5 kg
--- NOTE | 2017-01-15 16:26 | ERD ---
ER Documentation Chief Complaint Date/Time DATE: 01/15/17 TIME: 16:20 Chief Complaint RASH " SPOT" 2 MONTHS HPI This is a 21-year-old female who is presenting with a rash on the left side of her neck. She said that she noticed it may be a month ago, but it seemed to go away. However, it presented approximately 1 week ago again. She describes it as a light discoloration of the left side of her neck and it seems to be spreading. It does not itch. It is not painful. She has not noticed it anywhere else on the body. She denies feeling sick. She denies any fever or chills. She denies any headache or vision changes. She denies any neck or back pain. She denies any chest pain or trouble breathing. She denies any abdominal pain. She does state that her stitches from a repair during the got infected, and she was recently started on antibiotics. However, this is not a complaint today , and she would not like this to be evaluated at this time. She denies any changes to bowel movements or urination. She denies any weakness or numbness or tingling to the face or extremities. ROS All systems reviewed and are negative except as per history of present illness. Medications Home Meds Reported Medications Multivit/Min/Fol Ac/Iron/Pren* ( S*) 1 Tab Tab, 1 TAB PO DAILY, TAB 12/09/16 Allergies Allergies: Coded Allergies: No Known Drug Allergies (Verified Allergy, Mild, 12/23/16) PMhx/Soc Medical and Surgical Hx: pt denies Medical Hx, pt denies Surgical Hx History of Surgery: No Anesthesia Reaction: No Hx Neurological Disorder: No Hx Respiratory Disorders: No Hx Cardiac Disorders: No Hx Psychiatric Problems: Yes (depression) Hx Miscellaneous Medical Probl: No Hx Alcohol Use: No Hx Substance Use: No Hx Tobacco Use: No Smoking Status: Never smoker FmHx Family History: No diabetes Physical Exam Vitals Vital Signs Date Time Temp Pulse Resp B/P Pulse Ox O2 Delivery O2 Flow Rate FiO2 01/15/17 15:34 97.3 78 20 111/57 98 Physical Exam Const: No apparent distress, well-developed, well-nourished Head: Atraumatic Eyes: Normal Conjunctiva ENT: Normal External Ears, Nose and Mouth. Neck: Full range of motion. ~ No meningismus. Areas of white discoloration on the left side of the neck Resp: Clear to auscultation bilaterally Cardio: Regular rate and rhythm, no murmurs Abd: Soft, non tender, non distended. Normal bowel sounds Skin: No petechiae or rashes Back: No midline or flank tenderness Ext: No cyanosis, or edema Neur: Awake and alert, Normal strength, normal sensation Psych: Normal Mood and Affect Procedures/MDM The patient's rash is consistent with tinea versicolor. This may be treated with [place] Blue, applied topically once a day for 1 week. She should follow- up with her primary care physician for reevaluation in 3-5 days. The patient has no other complaints at this time, and her physical exam is otherwise reassuring. A exam was deferred at the request of the patient, so her infected stitches were not reassessed today. The patient knows that she needs to follow-up with her [employer] doctor for reevaluation of her issue. She is afebrile presently, and I do not suspect a systemic infection. At this time, the patient is stable for discharge. She will be given precautions with which to return to the emergency department. Departure Diagnosis: Primary Impression: Tinea versicolor Additional Impression: Rash Condition: Stable LOPEZ GUERRA MD Jan 15, 2017 16:26
[2017-01-15] MEDS ORDERED: SELSUN TOP (16:28)
== END 2017-01-15 16:40 | disposition home or self-care (01) ==
LOC: EDUNIT# 15:27 → E/R 15:27
DX: B36.0 Pityriasis versicolor (principal); R40.2252 Coma scale, best verbal response, oriented, at arrival to emergency department; R40.2142 Coma scale, eyes open, spontaneous, at arrival to emergency department; R40.2362 Coma scale, best motor response, obeys commands, at arrival to emergency department
CPT/HCPCS: 99283

== ENCOUNTER 2017-08-04 12:28 | Emergency (ER) | END 2017-08-04 13:01 | disposition home or self-care (01) ==